=== PATIENT | male | born 1990 | race Caucasian/White ===

== ENCOUNTER 2020-04-24 08:49 | Emergency (ER) | payer OTHER ==
[~2020-04-24] VITALS: Ht 185.4 cm; Wt 57.6 kg
[2020-04-24 11:01] VITALS: BP 115/81
== END 2020-04-24 11:01 | disposition home or self-care (01) ==
LOC: ED 08:49
DX: S43.402A Unspecified sprain of left shoulder joint, initial encounter (principal); M62.830 Muscle spasm of back; R07.89 Other chest pain; F12.10 Cannabis abuse, uncomplicated; X50.9XXA Other and unspecified overexertion or strenuous movements or postures, initial encounter; Y93.89 Activity, other specified; Y92.89 Other specified places as the place of occurrence of the external cause; Y99.8 Other external cause status
CPT/HCPCS: Q0092